=== PATIENT | male | born 1990 | race Caucasian/White ===

== ENCOUNTER 2016-07-30 11:56 | Inpatient (IN) | payer BC ==
[~2016-07-30 11:56] MED LIST: ALLEGRA-D1 TAB.SR .; AUGMENTIN 875-11 TAB PO; BACTRIM DS TABL1 TAB PO; BENADRYL50 MG; CORTAID; FLONASE ALLERG9.9 ML; FLOVENT HFA1 PUFF INH; NORCO 5/325 TAB1 TAB PO
[2016-07-30] MEDS ORDERED: CLARITIN-D 241 EAC2 PO (12:03)
[2016-07-30] MEDS ORDERED: VENTOLIN HFA18 G2 PO (12:04)
[2016-07-30] MEDS ORDERED: BACTRIM DS TAB1 EAC2 PO (12:09)
[2016-07-30] MEDS ORDERED: AUGMENTIN 875-1 EAC2 PO (12:09)
[2016-07-30 12:47] LABS: BASO % 0.4 % (0-2); BASO ABSOLUTE COUNT 0.1 tho/cmm (0.0-0.2); EOS % 3.5 % (0-7); EOSINOPHIL ABSOLUTE COUNT 0.4 tho/cmm (0.0-0.7); HCT-HEMATOCRIT 42.7 % (36.0-53.5); HGB-HEMOGLOBIN 14.7 gm/dl (13.5-17.0); IMMATURE GRANULOCYTES ABSOLUTE 0.13 tho/cmm (0-0.03); IMMATURE GRANULOCYTES PERCENT 1.1 % (0-0.3); LYMPH % 20.8 % (20-45); LYMPH ABSOLUTE COUNT 2.6 tho/cmm (0.8-4.5); MCH (MEAN CORPUSCULAR HGB) 30.3 pg (28.0-32.0); MCHC MEAN CORPUSCULAR HGB CONC 34.4 % (32.0-36.0); MEAN PLATELET VOLUME 9.8 cmc (9.4-12.4); MONO % 10.2 % (0-12); MONOCYTE ABSOLUTE COUNT 1.3 tho/cmm (0.0-1.2); NEUTROPHIL ABSOLUTE COUNT 7.9 tho/cmm (1.6-8.0); NEUTROPHIL-AUTOMATED 7.9 tho/cmm (1.6-8.0); PLATELET COUNT 417 tho/cmm (150-450); RED BLOOD COUNT 4.85 mil/cmm (4.40-5.70); WHITE BLOOD COUNT 12.4 tho/cmm (4.0-10.0)
[2016-07-30 12:59] LABS: ANION GAP 10 mmol/L (0-20); BLOOD UREA NITROGEN 12 mg/dl (6-24); CALCIUM 9.1 mg/dl (8.5-10.5); CARBON DIOXIDE-VENOUS 27 mmol/L (22-32); CHLORIDE 102 mmol/l (96-110); GLUCOSE 102 mg/dL (70-110); POTASSIUM 4.2 mmol/L (3.7-5.1); SODIUM 135 mmol/L (135-145); eGFR VALUE FOR BLACK >90 mL/Min
[2016-07-30 15:24] LABS: INR 1.1 INR (0.9-1.1); PROTHROMBIN TIME 12.5 SECONDS (9.0-13.6)
[2016-07-30 15:41] LABS: ALB/GLOB RATIO 0.7 (0.8-2.0); ALBUMIN 3.4 g/dl (3.5-5.0); ALKALINE PHOSPHATASE 78 U/L (33-138); ALT/SGPT 20 U/L (12-78); AST/SGOT 27 U/L (10-40); BILIRUBIN,DIRECT <0.1 mg/dl (0.0-0.3); BILIRUBIN,INDIRECT 0.3 mg/dL (0.0-1.0); BILIRUBIN,TOTAL 0.4 mg/dl (0.0-1.5); PREALBUMIN 11.2 mg/dl (20.0-40.0)
[2016-07-31 06:05] LABS: BASO % 0.9 % (0-2); BASO ABSOLUTE COUNT 0.1 tho/cmm (0.0-0.2); EOS % 5.7 % (0-7); EOSINOPHIL ABSOLUTE COUNT 0.5 tho/cmm (0.0-0.7); HCT-HEMATOCRIT 41.1 % (36.0-53.5); HGB-HEMOGLOBIN 14.1 gm/dl (13.5-17.0); IMMATURE GRANULOCYTES ABSOLUTE 0.12 tho/cmm (0-0.03); IMMATURE GRANULOCYTES PERCENT 1.3 % (0-0.3); LYMPH % 35.1 % (20-45); LYMPH ABSOLUTE COUNT 3.2 tho/cmm (0.8-4.5); MCH (MEAN CORPUSCULAR HGB) 30.1 pg (28.0-32.0); MCHC MEAN CORPUSCULAR HGB CONC 34.3 % (32.0-36.0); MCV (MEAN CELL VOLUME) 87.6 fl (82.0-96.0); MEAN PLATELET VOLUME 10.1 cmc (9.4-12.4); MONO % 10.7 % (0-12); NEUTROPHIL ABSOLUTE COUNT 4.2 tho/cmm (1.6-8.0); NEUTROPHIL-AUTOMATED 4.2 tho/cmm (1.6-8.0); NEUTROPHILS % 46.3 % (40-80); PLATELET COUNT 355 tho/cmm (150-450); RED BLOOD COUNT 4.69 mil/cmm (4.40-5.70)
[2016-07-31 07:05] LABS: ALB/GLOB RATIO 0.6 (0.8-2.0); ALBUMIN 2.6 g/dl (3.5-5.0); ALKALINE PHOSPHATASE 62 U/L (33-138); ALT/SGPT 17 U/L (12-78); BILIRUBIN,TOTAL 0.4 mg/dl (0.0-1.5); BLOOD UREA NITROGEN 11 mg/dl (6-24); CARBON DIOXIDE-VENOUS 22 mmol/L (22-32); CHLORIDE 110 mmol/l (96-110); CREATININE 0.99 mg/dl (0.60-1.30); GLUCOSE 95 mg/dL (70-110); PREALBUMIN 10.4 mg/dl (20.0-40.0); SODIUM 139 mmol/L (135-145); eGFR VALUE FOR BLACK >90 mL/Min
[2016-07-31 07:15] LABS: CALCIUM 9.1 mg/dl (8.5-10.5)
[2016-07-31 07:25] LABS: ANION GAP 12 mmol/L (0-20); AST/SGOT 28 U/L (10-40)
[2016-07-31 07:26] LABS: POTASSIUM 5.2 mmol/L (3.7-5.1)
[2016-08-01] MEDS ORDERED: HYDROCODON-ACE1 EA16 PO (12:13)
[2016-08-01] MEDS ORDERED: SULFAMYLON60 GM TOP (12:16)
[2016-08-23] MEDS ORDERED: ACETAMINOPHEN650 MG PO (10:13)
== END 2016-08-01 13:15 | DRG 605 ==
LOC: EDMED 11:56 → EMR2 13:59 → BURN 14:28
PROVIDERS: Emergency Medicine; Surgery; ADMIT Surgery
PROC: 0JCP0ZZ Extirpation of Matter from Left Lower Leg Subcutaneous Tissue and Fascia, Open Approach (ICD-10-PCS; principal; 2016-07-30)
DX: S80.02XA Contusion of left knee, initial encounter (principal); L02.416 Cutaneous abscess of left lower limb; L03.116 Cellulitis of left lower limb; J45.909 Unspecified asthma, uncomplicated; W19.XXXA Unspecified fall, initial encounter; Y93.31 Activity, mountain climbing, rock climbing and wall climbing
CPT/HCPCS: J1650; J2250; J2270; J2543; J3370; J7030; J7999